=== PATIENT | male | born 1960 | race Caucasian/White ===

== ENCOUNTER 2016-07-31 17:03 | Emergency (ER) | payer MEDICAID ==
[~2016-07-31] VITALS: Ht 162.6 cm; Wt 65.0 kg
[2016-07-31] MEDS ORDERED: KETOROLAC 30 MG/1 ML IM ONE (17:30)
[2016-07-31] MEDS ORDERED: KETOROLAC 30 MG/1 ML ONE (17:44)
[2016-07-31 19:49] VITALS: BP 133/80
== END 2016-07-31 19:51 | disposition home or self-care (01) ==
LOC: ED 19:03
DX: S80.02XA Contusion of left knee, initial encounter (principal); S80.01XA Contusion of right knee, initial encounter; W19.XXXA Unspecified fall, initial encounter; Y93.89 Activity, other specified; Y92.89 Other specified places as the place of occurrence of the external cause; Y99.8 Other external cause status
CPT/HCPCS: 73564; 96372; 99284; J1885

== ENCOUNTER 2019-03-26 23:59 | Inpatient (IN) | payer MEDICAID ==
[~2019-03-26] VITALS: Ht 167.6 cm; Wt 59.1 kg
[2019-03-27] MEDS ORDERED: LISI-424 PO (00:09)
--- NOTE | 2019-03-27 00:11 | NUR ---
PT BIB [facility] TRANSF[facility] FROM [facility] C/O SEIZURE AT AND SEPSIS UNKNOWN SOURCE, PT HAD GLF AT HOME IN HIS APPARTMENT AND CALLED 911 D/T WEAKNESS
[2019-03-27 00:38] LABS: MEAN CORPUSCULAR HEMOGLOBIN 29.6 pg (27.5-34.5); MEAN CORPUSCULAR HGB CONC 32.4 g/dL (33.2-36.2); MEAN CORPUSCULAR VOLUME 91.4 fL (81-97); PLATELET COUNT 169 x10^3/uL (130-400); RED BLOOD COUNT 3.08 x10^6/uL (4.38-5.82)
[2019-03-27 00:46] LABS: ALANINE AMINOTRANSFERASE 94 U/L (12-78); ALBUMIN 1.8 g/dL (3.4-5.0); ANION GAP 7 mmol/L (5-15); CALCIUM 7.3 mg/dL (8.5-10.1); CHLORIDE 113 mmol/L (98-107); CREATININE 0.61 mg/dL (0.7-1.3)
[2019-03-27 00:57] LABS: BASOPHILS % (AUTO) 0 % (0-1); EOSINOPHILS % (AUTO) 0 % (1-7); LYMPHOCYTES % (AUTO) 2 % (22-44); MD SCAN; MONOCYTES # (AUTO) 0.24 x10^3/uL (0.2-0.8); MONOCYTES % (AUTO) 3 % (2-9); NEUTROPHILS # (AUTO) 9.31 x10^3/uL (1.8-6.8); NEUTROPHILS % (AUTO) 95 % (42-75)
[2019-03-27 00:59] LABS: MICROSCOPIC INDICATED
[2019-03-27 01:05] LABS: ALKALINE PHOSPHATASE 1217 U/L (45-117); BILIRUBIN,TOTAL 2.3 mg/dL (0.2-1.0); CREATINE KINASE, TOTAL 223 U/L (39-308); TOTAL PROTEIN 5.3 g/dL (6.4-8.2)
[2019-03-27 01:10] LABS: CULTURE INDICATED? YES
[2019-03-27] MEDS ORDERED: CALCIUM GLUCONATE 4.6 MEQ in SODIUM CHLORIDE 0.9% 50 ML IV ONE (02:00)
--- NOTE | 2019-03-27 02:41 | NUR ---
PT SLEEPING ON GUALEX, VSKailyn AND WILL CONT TO MONITOR.
--- NOTE | 2019-03-27 05:04 | NUR ---
Received report and assumed patient care. Patient resting soundly.
--- NOTE | 2019-03-27 05:57 | NUR ---
Called report to manager reporting. Covered patients reason for transfer, recent round of labs and results of imaging. Reviewed interventions performed in the ER including peripheral iv access administration of Calcium and placement and management of Gonzales catheter. Reviewed plan of care to have MRCP. Recieved notice that the receiving room still needed cleaning. Will transfer when clean.
[2019-03-27 06:21] VITALS: BP 155/92
[2019-03-27] MEDS ORDERED: DOCUSATE 100 MG CAPSULE PO PRN (08:30)
[2019-03-27] MEDS ORDERED: POLYETHYLENE GLYCOL 17 GM PACKET PO PRN (08:30)
[2019-03-27] MEDS ORDERED: THIAMINE 200 MG in SODIUM CHLORIDE 0.9% 50 ML IV ONE (08:30)
[2019-03-27] MEDS ORDERED: LORazepam 1MG TABLET PO PRN (08:30)
[2019-03-27] MEDS: NICOTINE 14MG/24 HR PATCH.TD24 TD SCH (09:45)
[2019-03-27] MEDS: SODIUM CHLORIDE 0.9% 1,000 ML IV SCH (09:45)
[2019-03-27] MEDS: ENOXAPARIN 40 MG/0.4 ML SQ SCH (09:45)
[2019-03-27] MEDS: PIPERACILLIN/TAZO/PMX 3.375GM 50 ML IV SCH ×3 (10:14→22:53)
[2019-03-27] MEDS ORDERED: MAGNESIUM SULFATE PMX 2GM/50ML 50 ML IV ONE (12:00)
[2019-03-27] MEDS: POTASSIUM CHLORIDE 20 MEQ, MAGNESIUM SULFATE 1 GM, MVI ADULT 10 ML, THIAMINE 200 MG, FO... IV SCH (14:12)
[2019-03-27 15:24] VITALS: BP 125/82
[2019-03-27 19:35] VITALS: BP 129/92
[2019-03-27 20:30] LABS: OCCULT BLOOD NEGATIVE (NEGATIVE)
[2019-03-28] MEDS: SODIUM CHLORIDE 0.9% 1,000 ML IV SCH ×2 (00:25→09:21)
[2019-03-28 01:28] VITALS: BP 119/81
[2019-03-28] MEDS: PIPERACILLIN/TAZO/PMX 3.375GM 50 ML IV SCH ×3 (05:53→20:23)
[2019-03-28 05:58] LABS: BASOPHILS % (AUTO) 0 % (0-1); EOSINOPHILS # (AUTO) 0.06 x10^3/uL (0-0.4); EOSINOPHILS % (AUTO) 1 % (1-7); LYMPHOCYTES # (AUTO) 0.52 x10^3/uL (1-3.4); LYMPHOCYTES % (AUTO) 6 % (22-44); MD NO; MEAN CORPUSCULAR HEMOGLOBIN 29.8 pg (27.5-34.5); MEAN CORPUSCULAR HGB CONC 32.8 g/dL (33.2-36.2); MEAN CORPUSCULAR VOLUME 90.9 fL (81-97); MEAN PLATELET VOLUME 7.7 fL (7.4-10.4); MONOCYTES # (AUTO) 0.46 x10^3/uL (0.2-0.8); MONOCYTES % (AUTO) 5 % (2-9); NEUTROPHILS # (AUTO) 7.98 x10^3/uL (1.8-6.8); NEUTROPHILS % (AUTO) 89 % (42-75); PLATELET COUNT 145 x10^3/uL (130-400); RED CELL DISTRIBUTION WIDTH 17.5 % (9.4-14.8)
[2019-03-28 06:22] LABS: ALBUMIN 1.6 g/dL (3.4-5.0); ANION GAP 8 mmol/L (5-15); CALCIUM 7.8 mg/dL (8.5-10.1); CHLORIDE 110 mmol/L (98-107)
[2019-03-28 06:39] LABS: ALANINE AMINOTRANSFERASE 83 U/L (12-78); ALKALINE PHOSPHATASE 1076 U/L (45-117); BILIRUBIN,TOTAL 1.1 mg/dL (0.2-1.0); CREATININE 0.54 mg/dL (0.7-1.3); TOTAL PROTEIN 5.1 g/dL (6.4-8.2)
[2019-03-28 07:50] VITALS: BP 123/84
[2019-03-28 08:29] LABS: FREE T4 (FREE THYROXINE) 1.07 ng/dL (0.76-1.46)
[2019-03-28] MEDS: NICOTINE 14MG/24 HR PATCH.TD24 TD SCH (09:22)
[2019-03-28] MEDS: ENOXAPARIN 40 MG/0.4 ML SQ SCH (09:22)
[2019-03-28] MEDS ORDERED: MAGNESIUM SULFATE PMX 2GM/50ML 50 ML IV ONE (10:30)
[2019-03-28] MEDS: POTASSIUM CHLORIDE 20 MEQ TAB.ER.PRT PO SCH ×2 (14:01→16:30)
[2019-03-28] MEDS: PANCRELIPASE 24,000 CAPSULE.DR PO SCH ×2 (14:05→16:30)
[2019-03-28 15:49] VITALS: BP 129/85
[2019-03-28] MEDS: POTASSIUM CHLORIDE 20 MEQ, MAGNESIUM SULFATE 1 GM, MVI ADULT 10 ML, THIAMINE 200 MG, FO... IV SCH (16:30)
[2019-03-28 16:56] LABS: CLOSTRIDIUM DIFFICILE ANTIGEN NEGATIVE; CLOSTRIDIUM DIFFICILE TOXIN NEGATIVE (Negative)
[2019-03-28 20:12] VITALS: BP_SYST 90
[2019-03-28] MEDS: OXYcodone IR 5MG TABLET PO PRN (20:24)
[2019-03-29 01:33] VITALS: BP 147/96
[2019-03-29] MEDS: SODIUM CHLORIDE 0.9% 1,000 ML IV SCH ×2 (02:35→11:18)
[2019-03-29] MEDS: PIPERACILLIN/TAZO/PMX 3.375GM 50 ML IV SCH ×4 (02:35→20:59)
[2019-03-29] MEDS ORDERED: LORazepam 2 MG/ML, 1ML IVPush PRN ×2 (03:30→14:30)
[2019-03-29] MEDS ORDERED: ONDANSETRON 2MG/ML, 2ML IVPush ONE (03:30)
[2019-03-29 05:34] LABS: BASOPHILS # (AUTO) 0.01 x10^3/uL (0-0.1); BASOPHILS % (AUTO) 0 % (0-1); EOSINOPHILS # (AUTO) 0.02 x10^3/uL (0-0.4); EOSINOPHILS % (AUTO) 0 % (1-7); LYMPHOCYTES # (AUTO) 0.58 x10^3/uL (1-3.4); LYMPHOCYTES % (AUTO) 7 % (22-44); MD NO; MEAN CORPUSCULAR HEMOGLOBIN 29.7 pg (27.5-34.5); MEAN CORPUSCULAR HGB CONC 32.9 g/dL (33.2-36.2); MEAN CORPUSCULAR VOLUME 90.3 fL (81-97); MEAN PLATELET VOLUME 7.7 fL (7.4-10.4); MONOCYTES # (AUTO) 0.32 x10^3/uL (0.2-0.8); MONOCYTES % (AUTO) 4 % (2-9); NEUTROPHILS # (AUTO) 7.85 x10^3/uL (1.8-6.8); NEUTROPHILS % (AUTO) 89 % (42-75); PLATELET COUNT 153 x10^3/uL (130-400); RED BLOOD COUNT 3.04 x10^6/uL (4.38-5.82); RED CELL DISTRIBUTION WIDTH 18.1 % (9.4-14.8)
[2019-03-29 05:42] LABS: ALBUMIN 1.7 g/dL (3.4-5.0); ANION GAP 8 mmol/L (5-15); CHLORIDE 109 mmol/L (98-107)
[2019-03-29 06:00] LABS: ALANINE AMINOTRANSFERASE 81 U/L (12-78); ALKALINE PHOSPHATASE 1123 U/L (45-117); BILIRUBIN,TOTAL 0.9 mg/dL (0.2-1.0)
[2019-03-29] MEDS ORDERED: OMEPRAZOLE 20 MG CAPSULE.DR PO SCH (06:00)
[2019-03-29] MEDS: PANCRELIPASE 24,000 CAPSULE.DR PO SCH ×3 (07:00→16:41)
[2019-03-29 08:50] VITALS: BP 149/94
[2019-03-29] MEDS: NICOTINE 14MG/24 HR PATCH.TD24 TD SCH (09:02)
[2019-03-29] MEDS: ENOXAPARIN 40 MG/0.4 ML SQ SCH (09:02)
[2019-03-29] MEDS ORDERED: LORazepam 1MG TABLET PO PRN ×4 (10:00)
[2019-03-29] MEDS ORDERED: LORazepam 0.5MG TABLET PO PRN (10:00)
[2019-03-29] MEDS ORDERED: POTASSIUM CHLORIDE 20 MEQ TAB.ER.PRT PO ONE (10:00)
[2019-03-29] MEDS ORDERED: ONDANSETRON 2MG/ML, 2ML IV PRN ×2 (10:00→14:30)
[2019-03-29] MEDS ORDERED: LORazepam 2 MG/ML, 1ML IV PRN ×5 (10:00)
[2019-03-29] MEDS ORDERED: PROPOFOL 10 MG/ML, 20ML ONE (13:39)
[2019-03-29] MEDS ORDERED: MIDAZOLAM 1 MG/ML, 2ML ONE (13:39)
[2019-03-29] MEDS ORDERED: FENTANYL PF 100 MCG/2ML ONE (13:40)
[2019-03-29] MEDS ORDERED: MEPERIDINE/PF 25MG/ML,1ML IVPush PRN (14:30)
[2019-03-29] MEDS ORDERED: HYDROmorphone 2 MG/ML, 1ML IVPush PRN (14:30)
[2019-03-29] MEDS ORDERED: FENTANYL PF 100 MCG/2ML IV PRN (14:30)
[2019-03-29] MEDS ORDERED: hydrALAzine 20 MG/ML, 1ML IV PRN (14:30)
[2019-03-29] MEDS ORDERED: OXYcodone 5 MG/5 ML ORAL.SOL UDC PO PRN (14:30)
[2019-03-29 15:00] VITALS: BP 121/84
[2019-03-29] MEDS: PANTOPRAZOLE 40 MG IV IVPush SCH (16:41)
[2019-03-29] MEDS: POTASSIUM CHLORIDE 20 MEQ, MAGNESIUM SULFATE 1 GM, MVI ADULT 10 ML, THIAMINE 200 MG, FO... IV SCH (16:41)
[2019-03-29 20:08] VITALS: BP 143/88
[2019-03-30 01:24] VITALS: BP 135/78
[2019-03-30] MEDS: PIPERACILLIN/TAZO/PMX 3.375GM 50 ML IV SCH ×3 (02:00→08:03)
[2019-03-30 05:30] LABS: ALBUMIN 1.5 g/dL (3.4-5.0); ANION GAP 8 mmol/L (5-15); CALCIUM 8.4 mg/dL (8.5-10.1); CHLORIDE 108 mmol/L (98-107)
[2019-03-30 05:36] LABS: ALANINE AMINOTRANSFERASE 44 U/L (12-78); ALKALINE PHOSPHATASE 877 U/L (45-117); BILIRUBIN,TOTAL 0.7 mg/dL (0.2-1.0); CREATININE 0.44 mg/dL (0.7-1.3); TOTAL PROTEIN 4.5 g/dL (6.4-8.2)
[2019-03-30 05:43] LABS: BASOPHILS # (AUTO) 0.01 x10^3/uL (0-0.1); BASOPHILS % (AUTO) 0 % (0-1); EOSINOPHILS # (AUTO) 0.07 x10^3/uL (0-0.4); EOSINOPHILS % (AUTO) 1 % (1-7); LYMPHOCYTES # (AUTO) 0.97 x10^3/uL (1-3.4); LYMPHOCYTES % (AUTO) 15 % (22-44); MD NO; MEAN CORPUSCULAR HEMOGLOBIN 29.9 pg (27.5-34.5); MEAN CORPUSCULAR HGB CONC 32.9 g/dL (33.2-36.2); MEAN CORPUSCULAR VOLUME 90.8 fL (81-97); MEAN PLATELET VOLUME 7.6 fL (7.4-10.4); MONOCYTES # (AUTO) 0.37 x10^3/uL (0.2-0.8); MONOCYTES % (AUTO) 6 % (2-9); NEUTROPHILS # (AUTO) 4.91 x10^3/uL (1.8-6.8); NEUTROPHILS % (AUTO) 78 % (42-75); PLATELET COUNT 114 x10^3/uL (130-400); RED BLOOD COUNT 2.77 x10^6/uL (4.38-5.82); RED CELL DISTRIBUTION WIDTH 17.3 % (9.4-14.8)
[2019-03-30] MEDS: SODIUM CHLORIDE 0.9% 1,000 ML IV SCH ×3 (06:35→23:45)
[2019-03-30] MEDS: PANTOPRAZOLE 40 MG IV IVPush SCH ×2 (06:35→15:58)
[2019-03-30 08:00] VITALS: BP 112/68
[2019-03-30] MEDS: PANCRELIPASE 24,000 CAPSULE.DR PO SCH ×3 (08:03→15:59)
[2019-03-30] MEDS: ENOXAPARIN 40 MG/0.4 ML SQ SCH (08:03)
[2019-03-30] MEDS: NICOTINE 14MG/24 HR PATCH.TD24 TD SCH (08:03)
[2019-03-30] MEDS: MEROPENEM 1 GM in SODIUM CHLORIDE 0.9% 100 ML IV SCH ×2 (09:43→15:58)
[2019-03-30 13:48] VITALS: BP 133/90
[2019-03-30] MEDS: POTASSIUM CHLORIDE 20 MEQ, MAGNESIUM SULFATE 1 GM, MVI ADULT 10 ML, THIAMINE 200 MG, FO... IV SCH (15:58)
[2019-03-30 19:49] VITALS: BP 154/91
[2019-03-30] MEDS: OXYcodone IR 5MG TABLET PO PRN (21:09)
[2019-03-31] MEDS: MEROPENEM 1 GM in SODIUM CHLORIDE 0.9% 100 ML IV SCH ×3 (00:28→16:44)
[2019-03-31] MEDS: TRAZODONE 50MG TABLET PO PRN (00:28)
[2019-03-31] MEDS: SODIUM CHLORIDE 0.9% 1,000 ML IV SCH ×3 (04:50→23:41)
[2019-03-31] MEDS: PANTOPRAZOLE 40 MG IV IVPush SCH (05:29)
[2019-03-31] MEDS: NICOTINE 14MG/24 HR PATCH.TD24 TD SCH (08:37)
[2019-03-31] MEDS: ENOXAPARIN 40 MG/0.4 ML SQ SCH (08:37)
[2019-03-31] MEDS: PANCRELIPASE 24,000 CAPSULE.DR PO SCH ×3 (08:38→16:44)
[2019-03-31 09:03] VITALS: BP 120/82
[2019-03-31] MEDS: OXYcodone IR 5MG TABLET PO PRN ×2 (12:28→23:40)
[2019-03-31 14:57] VITALS: BP 116/81
[2019-03-31] MEDS: PANTOPROZOLE 40MG TABLET PO SCH (16:44)
[2019-03-31] MEDS: POTASSIUM CHLORIDE 20 MEQ, MAGNESIUM SULFATE 1 GM, MVI ADULT 10 ML, THIAMINE 200 MG, FO... IV SCH (16:44)
[2019-03-31 18:49] VITALS: BP 142/88
[2019-03-31] MEDS: DIPHENOXYLATE/ATROPINE TABLET PO PRN (21:39)
[2019-04-01] MEDS: MEROPENEM 1 GM in SODIUM CHLORIDE 0.9% 100 ML IV SCH ×3 (01:13→17:01)
[2019-04-01 02:42] VITALS: BP 125/81
[2019-04-01] MEDS: SODIUM CHLORIDE 0.9% 1,000 ML IV SCH ×3 (03:48→17:01)
[2019-04-01] MEDS: DIPHENOXYLATE/ATROPINE TABLET PO PRN ×2 (05:47→14:41)
[2019-04-01 06:09] LABS: BASOPHILS # (AUTO) 0.03 x10^3/uL (0-0.1); BASOPHILS % (AUTO) 1 % (0-1); EOSINOPHILS # (AUTO) 0.12 x10^3/uL (0-0.4); EOSINOPHILS % (AUTO) 2 % (1-7); LYMPHOCYTES # (AUTO) 0.97 x10^3/uL (1-3.4); LYMPHOCYTES % (AUTO) 18 % (22-44); MD NO; MEAN CORPUSCULAR HEMOGLOBIN 29.8 pg (27.5-34.5); MEAN CORPUSCULAR HGB CONC 32.4 g/dL (33.2-36.2); MEAN CORPUSCULAR VOLUME 91.9 fL (81-97); MEAN PLATELET VOLUME 7.9 fL (7.4-10.4); MONOCYTES # (AUTO) 0.46 x10^3/uL (0.2-0.8); MONOCYTES % (AUTO) 8 % (2-9); NEUTROPHILS # (AUTO) 3.98 x10^3/uL (1.8-6.8); NEUTROPHILS % (AUTO) 72 % (42-75); PLATELET COUNT 123 x10^3/uL (130-400)
[2019-04-01 06:30] LABS: ALBUMIN 1.3 g/dL (3.4-5.0); ANION GAP 6 mmol/L (5-15); CALCIUM 8.4 mg/dL (8.5-10.1); CHLORIDE 111 mmol/L (98-107)
[2019-04-01 06:33] LABS: ALANINE AMINOTRANSFERASE 24 U/L (12-78); ALKALINE PHOSPHATASE 572 U/L (45-117); BILIRUBIN,TOTAL 0.7 mg/dL (0.2-1.0); CREATININE 0.46 mg/dL (0.7-1.3); TOTAL PROTEIN 4.5 g/dL (6.4-8.2)
[2019-04-01 07:26] VITALS: BP 150/92
[2019-04-01] MEDS: ENOXAPARIN 40 MG/0.4 ML SQ SCH (07:49)
[2019-04-01] MEDS: PANCRELIPASE 24,000 CAPSULE.DR PO SCH ×3 (07:50→17:01)
[2019-04-01] MEDS: NICOTINE 14MG/24 HR PATCH.TD24 TD SCH (07:50)
[2019-04-01 13:07] VITALS: BP 137/88
[2019-04-01] MEDS: OXYcodone IR 5MG TABLET PO PRN (14:41)
[2019-04-01] MEDS: PANTOPROZOLE 40MG TABLET PO SCH (17:01)
[2019-04-01 19:32] VITALS: BP 139/90
[2019-04-01] MEDS ORDERED: POTASSIUM CHLORIDE 20 MEQ TAB.ER.PRT PO ONE (20:00)
[2019-04-01] MEDS: SUCRALFATE 1 GM TABLET PO SCH (20:28)
[2019-04-01] MEDS: LACTOBACILLUS CHEW TABLET PO SCH (20:29)
[2019-04-02] MEDS: MEROPENEM 1 GM in SODIUM CHLORIDE 0.9% 100 ML IV SCH ×3 (01:16→16:19)
[2019-04-02] MEDS: SODIUM CHLORIDE 0.9% 1,000 ML IV SCH ×2 (01:16→10:42)
[2019-04-02] MEDS: OXYcodone IR 5MG TABLET PO PRN ×3 (01:28→23:30)
[2019-04-02 02:21] VITALS: BP 137/89
[2019-04-02] MEDS: SUCRALFATE 1 GM TABLET PO SCH ×4 (05:32→20:10)
[2019-04-02 06:51] LABS: BASOPHILS # (AUTO) 0.05 x10^3/uL (0-0.1); BASOPHILS % (AUTO) 1 % (0-1); EOSINOPHILS # (AUTO) 0.11 x10^3/uL (0-0.4); EOSINOPHILS % (AUTO) 2 % (1-7); LYMPHOCYTES # (AUTO) 1.02 x10^3/uL (1-3.4); LYMPHOCYTES % (AUTO) 21 % (22-44); MD NO; MEAN CORPUSCULAR HEMOGLOBIN 30.1 pg (27.5-34.5); MEAN CORPUSCULAR HGB CONC 32.7 g/dL (33.2-36.2); MEAN PLATELET VOLUME 7.3 fL (7.4-10.4); MONOCYTES % (AUTO) 8 % (2-9); NEUTROPHILS # (AUTO) 3.33 x10^3/uL (1.8-6.8); NEUTROPHILS % (AUTO) 68 % (42-75); PLATELET COUNT 145 x10^3/uL (130-400); RED BLOOD COUNT 2.71 x10^6/uL (4.38-5.82); RED CELL DISTRIBUTION WIDTH 17.1 % (9.4-14.8)
[2019-04-02] MEDS: PANCRELIPASE 24,000 CAPSULE.DR PO SCH ×3 (07:00→16:19)
[2019-04-02 07:05] LABS: ALANINE AMINOTRANSFERASE 18 U/L (12-78); ALBUMIN 1.4 g/dL (3.4-5.0); ANION GAP 5 mmol/L (5-15); CALCIUM 8.7 mg/dL (8.5-10.1); CHLORIDE 110 mmol/L (98-107); CREATININE 0.38 mg/dL (0.7-1.3)
[2019-04-02 07:07] LABS: ALKALINE PHOSPHATASE 522 U/L (45-117); BILIRUBIN,TOTAL 0.4 mg/dL (0.2-1.0); TOTAL PROTEIN 4.8 g/dL (6.4-8.2)
[2019-04-02 07:59] VITALS: BP 156/97
[2019-04-02] MEDS: ENOXAPARIN 40 MG/0.4 ML SQ SCH (10:40)
[2019-04-02] MEDS: LACTOBACILLUS CHEW TABLET PO SCH ×3 (10:41→20:11)
[2019-04-02] MEDS: NICOTINE 14MG/24 HR PATCH.TD24 TD SCH (10:41)
[2019-04-02 13:16] VITALS: BP 122/78
[2019-04-02] MEDS: PANTOPROZOLE 40MG TABLET PO SCH (16:19)
[2019-04-02 19:36] VITALS: BP 145/84
[2019-04-02] MEDS: TRAZODONE 50MG TABLET PO PRN (21:34)
[2019-04-03] MEDS: MEROPENEM 1 GM in SODIUM CHLORIDE 0.9% 100 ML IV SCH ×3 (00:34→17:00)
[2019-04-03 01:47] VITALS: BP 132/89
[2019-04-03] MEDS: SUCRALFATE 1 GM TABLET PO SCH ×4 (05:35→21:42)
[2019-04-03] MEDS: DIPHENOXYLATE/ATROPINE TABLET PO PRN (06:07)
[2019-04-03] MEDS: OXYcodone IR 5MG TABLET PO PRN ×2 (06:07→16:57)
[2019-04-03] MEDS: PANCRELIPASE 24,000 CAPSULE.DR PO SCH ×3 (07:00→16:56)
[2019-04-03 07:37] VITALS: BP 134/85
[2019-04-03] MEDS: THIAMINE 100MG TABLET PO SCH (10:59)
[2019-04-03] MEDS: LACTOBACILLUS CHEW TABLET PO SCH ×3 (10:59→21:41)
[2019-04-03] MEDS: ENOXAPARIN 40 MG/0.4 ML SQ SCH (11:00)
[2019-04-03] MEDS: MULTIVITAMIN 1 TABLET PO SCH (11:00)
[2019-04-03] MEDS: FOLIC ACID 1 MG TABLET PO SCH (11:00)
[2019-04-03] MEDS: NICOTINE 14MG/24 HR PATCH.TD24 TD SCH (11:01)
[2019-04-03 13:54] VITALS: BP 126/77
[2019-04-03] MEDS ORDERED: LIPA1CAP61 PO (15:30)
[2019-04-03] MEDS ORDERED: DIPH1TAB6 PO (15:30)
[2019-04-03] MEDS ORDERED: SUCR1TAB33 PO (15:30)
[2019-04-03] MEDS ORDERED: MULT1TAB60 PO (15:30)
[2019-04-03] MEDS ORDERED: THIA100T67 PO (15:30)
[2019-04-03] MEDS ORDERED: FOLI-17 PO (15:30)
[2019-04-03] MEDS ORDERED: NICO-486 TD (15:30)
[2019-04-03] MEDS ORDERED: PANT40TA5 PO (15:30)
[2019-04-03] MEDS ORDERED: ACID1TAB7 PO (15:30)
[2019-04-03] MEDS ORDERED: MERO1VIA15 IV (15:30)
[2019-04-03] MEDS: PANTOPROZOLE 40MG TABLET PO SCH (16:56)
[2019-04-03 20:00] VITALS: BP 121/78
[2019-04-04] MEDS: OXYcodone IR 5MG TABLET PO PRN ×3 (00:08→15:00)
[2019-04-04] MEDS: MEROPENEM 1 GM in SODIUM CHLORIDE 0.9% 100 ML IV SCH ×3 (02:17→18:24)
[2019-04-04 02:22] VITALS: BP 129/78
[2019-04-04 05:44] LABS: BASOPHILS # (AUTO) 0.05 x10^3/uL (0-0.1); BASOPHILS % (AUTO) 1 % (0-1); EOSINOPHILS # (AUTO) 0.07 x10^3/uL (0-0.4); EOSINOPHILS % (AUTO) 1 % (1-7); LYMPHOCYTES # (AUTO) 0.89 x10^3/uL (1-3.4); LYMPHOCYTES % (AUTO) 20 % (22-44); MD NO; MEAN CORPUSCULAR HEMOGLOBIN 30.3 pg (27.5-34.5); MEAN CORPUSCULAR HGB CONC 32.9 g/dL (33.2-36.2); MEAN PLATELET VOLUME 7.5 fL (7.4-10.4); MONOCYTES # (AUTO) 0.49 x10^3/uL (0.2-0.8); MONOCYTES % (AUTO) 11 % (2-9); NEUTROPHILS # (AUTO) 3.05 x10^3/uL (1.8-6.8); NEUTROPHILS % (AUTO) 67 % (42-75); PLATELET COUNT 142 x10^3/uL (130-400); RED BLOOD COUNT 2.56 x10^6/uL (4.38-5.82); RED CELL DISTRIBUTION WIDTH 17.6 % (9.4-14.8)
[2019-04-04 05:48] LABS: ALANINE AMINOTRANSFERASE 17 U/L (12-78); ALBUMIN 1.5 g/dL (3.4-5.0); ANION GAP 5 mmol/L (5-15); CALCIUM 9.1 mg/dL (8.5-10.1); CHLORIDE 103 mmol/L (98-107); CREATININE 0.49 mg/dL (0.7-1.3)
[2019-04-04 05:50] LABS: ALKALINE PHOSPHATASE 420 U/L (45-117); BILIRUBIN,TOTAL 0.5 mg/dL (0.2-1.0); TOTAL PROTEIN 4.9 g/dL (6.4-8.2)
[2019-04-04] MEDS: SUCRALFATE 1 GM TABLET PO SCH ×4 (06:06→21:55)
[2019-04-04] MEDS: PANCRELIPASE 24,000 CAPSULE.DR PO SCH ×3 (06:10→18:23)
[2019-04-04 09:07] VITALS: BP 133/79
[2019-04-04] MEDS: NICOTINE 14MG/24 HR PATCH.TD24 TD SCH (09:32)
[2019-04-04] MEDS: ENOXAPARIN 40 MG/0.4 ML SQ SCH (09:32)
[2019-04-04] MEDS: LACTOBACILLUS CHEW TABLET PO SCH ×3 (09:33→21:54)
[2019-04-04] MEDS: MULTIVITAMIN 1 TABLET PO SCH (09:33)
[2019-04-04] MEDS: FOLIC ACID 1 MG TABLET PO SCH (09:34)
[2019-04-04] MEDS: POTASSIUM CHLORIDE 20 MEQ TAB.ER.PRT PO SCH ×2 (09:34→18:24)
[2019-04-04] MEDS: THIAMINE 100MG TABLET PO SCH (09:35)
[2019-04-04 13:56] VITALS: BP 127/82
[2019-04-04] MEDS: PANTOPROZOLE 40MG TABLET PO SCH (18:23)
[2019-04-04 20:06] VITALS: BP 119/76
[2019-04-05 00:22] VITALS: BP 114/74
[2019-04-05] MEDS: MEROPENEM 1 GM in SODIUM CHLORIDE 0.9% 100 ML IV SCH ×3 (02:15→17:34)
[2019-04-05 05:18] LABS: ANION GAP 5 mmol/L (5-15); CALCIUM 9.7 mg/dL (8.5-10.1); CHLORIDE 104 mmol/L (98-107); CREATININE 0.59 mg/dL (0.7-1.3)
[2019-04-05] MEDS: SUCRALFATE 1 GM TABLET PO SCH ×3 (06:19→16:20)
[2019-04-05] MEDS: PANCRELIPASE 24,000 CAPSULE.DR PO SCH ×3 (06:19→16:21)
[2019-04-05] MEDS: OXYcodone IR 5MG TABLET PO PRN (06:26)
[2019-04-05 08:05] VITALS: BP 143/97
[2019-04-05] MEDS: MULTIVITAMIN 1 TABLET PO SCH (08:53)
[2019-04-05] MEDS: LACTOBACILLUS CHEW TABLET PO SCH ×2 (08:53→16:20)
[2019-04-05] MEDS: NICOTINE 14MG/24 HR PATCH.TD24 TD SCH (08:53)
[2019-04-05] MEDS: THIAMINE 100MG TABLET PO SCH (08:53)
[2019-04-05] MEDS: FOLIC ACID 1 MG TABLET PO SCH (08:53)
[2019-04-05] MEDS: ENOXAPARIN 40 MG/0.4 ML SQ SCH (10:17)
[2019-04-05 13:27] VITALS: BP 125/75
[2019-04-05] MEDS: PANTOPROZOLE 40MG TABLET PO SCH (16:41)
== END 2019-04-05 18:21 | disposition home or self-care (01) | DRG 871 ==
LOC: ED 03-27 01:48 → EDIP 03-27 01:58 → 3N 03-27 06:14
PROVIDERS: ADMIT Family Medicine; ATTEND Family Medicine
PROC: 0T9B70Z Drainage of Bladder with Drainage Device, Via Natural or Artificial Opening (ICD-10-PCS; principal; 2019-03-27)
PROC: 0DB68ZX Excision of Stomach, Via Natural or Artificial Opening Endoscopic, Diagnostic (ICD-10-PCS; 2019-03-29)
PROC: 02HV33Z Insertion of Infusion Device into Superior Vena Cava, Percutaneous Approach (ICD-10-PCS; 2019-04-02)
PROC: B548ZZA Ultrasonography of Superior Vena Cava, Guidance (ICD-10-PCS; 2019-04-02)
PROC: B5181ZA Fluoroscopy of Superior Vena Cava using Low Osmolar Contrast, Guidance (ICD-10-PCS; 2019-04-02)
DX: A41.51 Sepsis due to Escherichia coli [E. coli] (principal); K25.0 Acute gastric ulcer with hemorrhage; K85.90 Acute pancreatitis without necrosis or infection, unspecified; D62 Acute posthemorrhagic anemia; E87.2 Acidosis; K86.3 Pseudocyst of pancreas; G40.89 Other seizures; F10.239 Alcohol dependence with withdrawal, unspecified; K22.10 Ulcer of esophagus without bleeding; K86.1 Other chronic pancreatitis; Z16.12 Extended spectrum beta lactamase (ESBL) resistance; A08.4 Viral intestinal infection, unspecified; B35.1 Tinea unguium; D64.9 Anemia, unspecified; E78.5 Hyperlipidemia, unspecified; E83.42 Hypomagnesemia; E83.51 Hypocalcemia; E87.6 Hypokalemia; F17.210 Nicotine dependence, cigarettes, uncomplicated; I10 Essential (primary) hypertension; K70.10 Alcoholic hepatitis without ascites; K83.8 Other specified diseases of biliary tract; K82.8 Other specified diseases of gallbladder; K26.9 Duodenal ulcer, unspecified as acute or chronic, without hemorrhage or perforation; K71.0 Toxic liver disease with cholestasis; T50.905A Adverse effect of unspecified drugs, medicaments and biological substances, initial encounter; K31.9 Disease of stomach and duodenum, unspecified; W01.0XXA Fall on same level from slipping, tripping and stumbling without subsequent striking against object, initial encounter; Y93.89 Activity, other specified; Y92.89 Other specified places as the place of occurrence of the external cause; Y99.8 Other external cause status; Z87.19 Personal history of other diseases of the digestive system
CPT/HCPCS: 36415; 36573; 71045; 74181; 76700; 80048; 80053; 81001; 82103; 82272; 82550; 82728; 82962; 83516; 83540; 83550; 83605; 83690; 83735; 84100; 84145; 84439; 84443; 85025; 86038; 86803; 87040; 87046; 87086; 87324; 87340; 87427; 88305; 96374; G0378; J0610; J1650; J2185; J2250; J2405; J2543; J2704; J3010; J3411; J3475; J3480; C1751; C9113; J2060; J7030